=== PATIENT | female | born 1950 | race Two or more races ===

== ENCOUNTER → 2017-10-13 | Outpatient (CLI) | payer OTHER ==
[~2017-10-13] MED LIST: AZITHROMYCIN250 MG; CALTRATE 61 TAB.CHEW PO; CLONAZEPAM1 MG PO; COLACE100 MG PO; DOCUSATE SODIU100 MG PO; FOLIC ACID1 MG PO; GUAIFENESIN AC C5 ML PO; Glucophage PO; INTESTINEX1 CAP PO; INTRINSI B12-F1 EACH PO; LEVAQUIN-D5W5 MG/M2 PO; LEVSIN/SL0.125 MG SL; OSEL75CA; OSEL75CA PO; OSTERA TABLET1 EACH PO; PERCOCET 5/3251 TAB PO; Pepcid 20 MG TABLET PO; SINGULAIR 10MG10 MG PO; SYNTHROID75 MCG PO; SYNTHROID88 MCG; VASOTEC PO; VASOTEC10 MG NGT; VIT C-BIOFLAVO1 EACH PO; ZOCOR20 MG PO; Zolpidem Tartrate 5MG PO; [UNRECOGNIZED DRUG - OTHER]
== END | disposition home or self-care (01) ==
LOC: NUCLEAR 10-12 10:00
DX: M81.0 Age-related osteoporosis without current pathological fracture (principal)

== ENCOUNTER 2017-10-14 11:57 | Outpatient (CLI) | payer OTHER | END 2017-10-14 15:00 | disposition home or self-care (01) | LOC: MAMO-SONO 11:57 | DX: Z12.31 Encounter for screening mammogram for malignant neoplasm of breast (principal); Z87.898 Personal history of other specified conditions; E11.40 Type 2 diabetes mellitus with diabetic neuropathy, unspecified; E11.42 Type 2 diabetes mellitus with diabetic polyneuropathy; E11.51 Type 2 diabetes mellitus with diabetic peripheral angiopathy without gangrene; I10 Essential (primary) hypertension; Z68.21 Body mass index [BMI] 21.0-21.9, adult; E03.8 Other specified hypothyroidism; R10.31 Right lower quadrant pain; I99.8 Other disorder of circulatory system; E78.2 Mixed hyperlipidemia ==

== ENCOUNTER 2017-10-21 12:31 | Outpatient (CLI) | payer OTHER | END 2017-10-21 16:00 | disposition home or self-care (01) | LOC: MRI 12:31 | DX: N85.9 Noninflammatory disorder of uterus, unspecified (principal); R10.2 Pelvic and perineal pain | CPT/HCPCS: 72197; A9579 ==

== ENCOUNTER 2017-11-23 09:05 | Outpatient (CLI) | payer OTHER | END 2017-11-23 10:58 | disposition home or self-care (01) | LOC: RAD 09:05 | DX: M50.00 Cervical disc disorder with myelopathy, unspecified cervical region (principal); Z98.1 Arthrodesis status ==

== ENCOUNTER 2017-12-10 11:55 | Outpatient (CLI) | payer OTHER ==
[~2017-12-10 11:55] MED LIST changes: -SYNTHROID88 MCG; +SYNTHROID88 MCG PO
== END 2017-12-10 16:32 | disposition home or self-care (01) ==
LOC: TOM 11:55
DX: K57.30 Diverticulosis of large intestine without perforation or abscess without bleeding (principal)

== ENCOUNTER 2017-12-15 07:31 | Outpatient (CLI) | payer OTHER ==
[~2017-12-15 07:31] MED LIST changes: +SYNTHROID88 MCG; -SYNTHROID88 MCG PO
== END 2017-12-15 07:56 | disposition home or self-care (01) ==
LOC: MRI 07:31
DX: M51.36 Other intervertebral disc degeneration, lumbar region (principal)
CPT/HCPCS: 72148

== ENCOUNTER 2018-02-01 07:25 | Outpatient (CLI) | payer OTHER | END 2018-02-01 07:27 | disposition home or self-care (01) | LOC: RAD 07:25 | DX: R07.89 Other chest pain (principal) ==

== ENCOUNTER 2018-02-09 11:15 | Inpatient (IN) | payer OTHER ==
[~2018-02-09] VITALS: Ht 152.4 cm; Wt 57.2 kg
[~2018-02-09 11:15] MED LIST changes: -SYNTHROID88 MCG; +SYNTHROID88 MCG PO
[2018-02-16] MEDS ORDERED: AMOX-CLAV 875-1 EACH PO (07:30)
[2018-02-16] MEDS ORDERED: GABAPENTIN800 MG PO (07:30)
[2018-02-16] MEDS ORDERED: DOCUSATE SODIU100 MG PO (07:30)
[2018-02-16] MEDS ORDERED: CLONAZEPAM1 MG PO (07:32)
[2018-02-16] MEDS ORDERED: PERCOCET 5-3251 EACH PO (07:32)
== END 2018-02-16 13:44 | disposition home or self-care (01) | DRG 460 ==
LOC: O/R 02-15 04:40 → PED 02-15 04:40 → SURH 02-15 11:15 → PED 02-15 14:00
PROVIDERS: Orthopaedic Surgery Orthopaedic Surgery of the Spine
PROC: 0SG30AJ Fusion of Lumbosacral Joint with Interbody Fusion Device, Posterior Approach, Anterior Column, Open Approach (ICD-10-PCS; 2018-02-15)
PROC: 0ST40ZZ Resection of Lumbosacral Disc, Open Approach (ICD-10-PCS; 2018-02-15)
PROC: 07DS3ZZ Extraction of Vertebral Bone Marrow, Percutaneous Approach (ICD-10-PCS; 2018-02-15)
PROC: 00NY0ZZ Release Lumbar Spinal Cord, Open Approach (ICD-10-PCS; principal; 2018-02-15 12:45)
DX: M47.27 Other spondylosis with radiculopathy, lumbosacral region (principal); M51.17 Intervertebral disc disorders with radiculopathy, lumbosacral region; E11.9 Type 2 diabetes mellitus without complications; E03.8 Other specified hypothyroidism; I10 Essential (primary) hypertension

== ENCOUNTER 2018-04-08 07:44 | Outpatient (CLI) | payer OTHER ==
[~2018-04-08 07:44] MED LIST changes: +AMOX-CLAV 875-1 EACH PO; +GABAPENTIN800 MG PO; +PERCOCET 5-3251 EACH PO
[2018-04-08] MEDS ORDERED: METFORMIN HCL500 M2 PO (08:30)
== END 2018-04-08 07:45 | disposition home or self-care (01) ==
LOC: RAD 07:44
DX: M51.36 Other intervertebral disc degeneration, lumbar region (principal); Z98.1 Arthrodesis status

== ENCOUNTER 2018-04-08 08:10 | Emergency (ER) | payer OTHER ==
[~2018-04-08] VITALS: Ht 160 cm; Wt 53.1 kg
[2018-04-08] MEDS ORDERED: METFORMIN HCL500 M2 PO (08:30)
== END 2018-04-08 21:13 | disposition home or self-care (01) ==
LOC: ER 08:10
DX: L29.0 Pruritus ani (principal); R63.4 Abnormal weight loss

== ENCOUNTER 2018-04-22 10:49 | Outpatient (CLI) | payer OTHER ==
[~2018-04-22 10:49] MED LIST changes: +METFORMIN HCL500 M2 PO
== END 2018-04-22 10:57 | disposition home or self-care (01) ==
LOC: SONOGRAMA 10:49
DX: N20.0 Calculus of kidney (principal); I10 Essential (primary) hypertension; Z68.21 Body mass index [BMI] 21.0-21.9, adult; E04.1 Nontoxic single thyroid nodule

== ENCOUNTER 2018-07-14 15:02 | Outpatient (CLI) | payer OTHER | END 2018-07-14 15:09 | disposition home or self-care (01) | LOC: RAD 15:02 | DX: J45.31 Mild persistent asthma with (acute) exacerbation (principal) ==

== ENCOUNTER 2018-07-22 08:12 | Outpatient (CLI) | payer OTHER | END 2018-07-22 08:27 | disposition home or self-care (01) | LOC: RAD 08:12 | DX: M51.36 Other intervertebral disc degeneration, lumbar region (principal); Z98.1 Arthrodesis status ==

== ENCOUNTER 2018-08-06 07:25 | Outpatient (CLI) | payer OTHER | END 2018-08-06 07:29 | disposition home or self-care (01) | LOC: SONOGRAMA 07:25 | DX: R10.2 Pelvic and perineal pain (principal); D25.9 Leiomyoma of uterus, unspecified ==

== ENCOUNTER 2018-09-20 07:47 | Outpatient (CLI) | payer OTHER ==
[~2018-09-20] VITALS: Ht 152.4 cm; Wt 56.7 kg
== END 2018-09-20 08:00 | disposition home or self-care (01) ==
LOC: OFIC 805 07:47
DX: J34.2 Deviated nasal septum (principal); J31.0 Chronic rhinitis

== ENCOUNTER 2018-10-21 08:01 | Outpatient (CLI) | payer OTHER ==
[~2018-10-21] VITALS: Ht 152.4 cm; Wt 56.7 kg
== END 2018-10-21 08:15 | disposition home or self-care (01) ==
LOC: OFIC 805 08:01
DX: J34.2 Deviated nasal septum (principal); J31.0 Chronic rhinitis

== ENCOUNTER 2018-10-22 09:37 | Outpatient (CLI) | payer OTHER | END 2018-10-22 09:54 | disposition home or self-care (01) | LOC: MAMO-SONO 09:37 | DX: Z12.31 Encounter for screening mammogram for malignant neoplasm of breast (principal); Z87.898 Personal history of other specified conditions; N64.89 Other specified disorders of breast; E04.1 Nontoxic single thyroid nodule; Z13.820 Encounter for screening for osteoporosis; M81.0 Age-related osteoporosis without current pathological fracture ==

== ENCOUNTER 2018-12-15 07:05 | Outpatient (CLI) | payer OTHER | END 2018-12-15 07:13 | disposition home or self-care (01) | LOC: TOM 07:05 | DX: R10.13 Epigastric pain (principal); R63.5 Abnormal weight gain | CPT/HCPCS: 74178; Q9965 ==

== ENCOUNTER 2019-02-05 16:31 | Emergency (ER) | payer OTHER ==
[~2019-02-05] VITALS: Ht 157.5 cm; Wt 56.7 kg
[2019-02-05] MEDS ORDERED: ALBUTEROL2.5 MG/3 M (18:31)
[2019-02-05] MEDS ORDERED: AZITHROMYCIN500 MG (18:32)
[2019-02-05] MEDS ORDERED: VASOTEC2.5 MG (18:33)
[2019-02-05] MEDS ORDERED: VASOTEC10 MG (18:34)
== END 2019-02-05 20:39 | disposition home or self-care (01) ==
LOC: ER 16:31
DX: J06.9 Acute upper respiratory infection, unspecified (principal); I10 Essential (primary) hypertension

== ENCOUNTER 2019-04-19 07:32 | Outpatient (CLI) | payer OTHER ==
[~2019-04-19 07:32] MED LIST changes: +ALBUTEROL2.5 MG/3 M; +AZITHROMYCIN500 MG; +VASOTEC10 MG; +VASOTEC2.5 MG
== END 2019-04-19 14:47 | disposition home or self-care (01) ==
LOC: SONOGRAMA 07:32
DX: N20.0 Calculus of kidney (principal); E11.22 Type 2 diabetes mellitus with diabetic chronic kidney disease; E11.40 Type 2 diabetes mellitus with diabetic neuropathy, unspecified; I12.9 Hypertensive chronic kidney disease with stage 1 through stage 4 chronic kidney disease, or unspecified chronic kidney disease; Z68.21 Body mass index [BMI] 21.0-21.9, adult; E04.1 Nontoxic single thyroid nodule; M54.5 Low back pain; N18.2 Chronic kidney disease, stage 2 (mild); E78.49 Other hyperlipidemia

== ENCOUNTER 2019-04-26 07:08 | Outpatient (CLI) | payer OTHER | END 2019-04-26 07:09 | disposition home or self-care (01) | LOC: SONOGRAMA 07:08 → TOM 07:15 | DX: E04.2 Nontoxic multinodular goiter (principal) ==

== ENCOUNTER 2019-10-19 14:39 | Inpatient (IN) | payer OTHER ==
[~2019-10-19] VITALS: Ht 160 cm; Wt 57.6 kg
--- NOTE | 2019-10-19 15:03 | NUR ---
PACIENTE FEMINA ALERTA Y ORIENTADA CON DORIS DOLOR ABDOMINAL EN LAS ULTIMAS 24 HORAS 3 EPISODIOS. LOS SINTOMAS SON DESDE HOY.
--- NOTE | 2019-10-19 17:57 | NUR ---
PACIENTE ALERTA Y ORIENTADA EN JAYMIE CHRISTAL ESFERAS, ES ORIENTADA SOBRE ORDENES MEDICAS, REFIERE ENTENDER. SE COLECTAN MUESTRAS DE DENIS, SE CANALIZA VENA, SE ADMINISTRAN MEDICAMENTOS, SE HACE ENTREGA DE CONSTRASTE GASTROVIEW CON INSTRUCCIONES PREVIAS, PENDIENTE QUE PACIENTE ENTREGUE MUESTRA DE ORINA.
[2019-10-21] MEDS ORDERED: ULTRACET PO (16:26)
[2019-10-21] MEDS ORDERED: CIPRO500 MG PO (16:26)
== END 2019-10-21 17:29 | disposition home or self-care (01) | DRG 343 ==
LOC: ER 14:39 → SURG 22:26
PROVIDERS: ADMIT Surgery
PROC: BW21YZZ Computerized Tomography (CT Scan) of Abdomen and Pelvis using Other Contrast (ICD-10-PCS; 2019-10-19)
PROC: 0DTJ0ZZ Resection of Appendix, Open Approach (ICD-10-PCS; principal; 2019-10-20 07:00)
DX: K35.890 Other acute appendicitis without perforation or gangrene (principal); K57.30 Diverticulosis of large intestine without perforation or abscess without bleeding; E03.8 Other specified hypothyroidism; I10 Essential (primary) hypertension; E86.0 Dehydration; E87.8 Other disorders of electrolyte and fluid balance, not elsewhere classified

== ENCOUNTER → 2019-10-27 | Outpatient (CLI) | payer OTHER ==
[~2019-10-27] MED LIST changes: +CIPRO500 MG PO; +ULTRACET PO
== END | disposition home or self-care (01) ==
LOC: MAMO-SONO 10:25
DX: Z12.31 Encounter for screening mammogram for malignant neoplasm of breast (principal); Z87.898 Personal history of other specified conditions; N64.4 Mastodynia; M81.0 Age-related osteoporosis without current pathological fracture

== ENCOUNTER 2019-11-02 09:13 | Outpatient (CLI) | payer OTHER | END 2019-11-02 09:25 | disposition home or self-care (01) | LOC: NUCLEAR 09:13 | DX: M85.89 Other specified disorders of bone density and structure, multiple sites (principal) ==

== ENCOUNTER 2020-08-10 07:11 | Outpatient (CLI) | payer OTHER | END 2020-08-10 07:19 | disposition home or self-care (01) | LOC: TOM 07:11 | DX: K57.90 Diverticulosis of intestine, part unspecified, without perforation or abscess without bleeding (principal); N20.0 Calculus of kidney ==

== ENCOUNTER 2020-08-20 07:36 | Outpatient (CLI) | payer OTHER | END 2020-08-20 07:46 | disposition home or self-care (01) | LOC: RAD 07:36 | DX: R07.89 Other chest pain (principal) ==

== ENCOUNTER 2020-08-27 08:27 | Outpatient (CLI) | payer OTHER | END 2020-08-27 08:37 | disposition home or self-care (01) | LOC: NUCLEAR 08:27 | PROVIDERS: ATTEND Internal Medicine Rheumatology | DX: M05.29 Rheumatoid vasculitis with rheumatoid arthritis of multiple sites (principal); M87.059 Idiopathic aseptic necrosis of unspecified femur | CPT/HCPCS: 78315; A9503 ==

== ENCOUNTER 2020-11-01 08:26 | Outpatient (CLI) | payer OTHER | END 2020-11-01 08:42 | disposition home or self-care (01) | LOC: MAMO-SONO 08:26 | PROVIDERS: ATTEND Obstetrics & Gynecology | DX: Z12.31 Encounter for screening mammogram for malignant neoplasm of breast (principal); N64.4 Mastodynia ==

== ENCOUNTER 2021-02-19 07:19 | Outpatient (CLI) | payer OTHER | END 2021-02-19 07:27 | disposition home or self-care (01) | LOC: RAD 07:19 | DX: M25.562 Pain in left knee (principal) ==

== ENCOUNTER 2021-05-30 07:17 | Outpatient (CLI) | payer OTHER | END 2021-05-30 13:11 | disposition home or self-care (01) | LOC: TOM 07:17 | PROVIDERS: ATTEND Specialist | DX: I10 Essential (primary) hypertension (principal); E78.2 Mixed hyperlipidemia; D51.3 Other dietary vitamin B12 deficiency anemia; D50.8 Other iron deficiency anemias; D72.818 Other decreased white blood cell count; M06.89 Other specified rheumatoid arthritis, multiple sites; J84.89 Other specified interstitial pulmonary diseases | CPT/HCPCS: 71260; Q9965 ==

== ENCOUNTER 2021-06-03 10:42 | Outpatient (CLI) | payer OTHER | END 2021-06-03 10:47 | disposition home or self-care (01) | LOC: RAD 10:42 | PROVIDERS: ATTEND Orthopaedic Surgery | DX: M17.12 Unilateral primary osteoarthritis, left knee (principal); M17.11 Unilateral primary osteoarthritis, right knee ==

== ENCOUNTER 2021-08-27 07:27 | Outpatient (CLI) | payer OTHER | END 2021-08-27 07:29 | disposition home or self-care (01) | LOC: SONOGRAMA 07:27 | DX: R10.2 Pelvic and perineal pain (principal) ==

== ENCOUNTER 2021-11-06 07:08 | Outpatient (CLI) | payer OTHER | END 2021-11-06 07:10 | disposition home or self-care (01) | LOC: RAD 07:08 | DX: M25.551 Pain in right hip (principal); M25.552 Pain in left hip ==

== ENCOUNTER 2021-12-18 07:07 | Outpatient (CLI) | payer OTHER | END 2021-12-18 07:17 | disposition home or self-care (01) | LOC: SONOGRAMA 07:07 | DX: R16.1 Splenomegaly, not elsewhere classified (principal); D53.8 Other specified nutritional anemias ==

== ENCOUNTER 2022-05-05 07:39 | Outpatient (CLI) | payer OTHER | END 2022-05-05 07:46 | disposition home or self-care (01) | LOC: MAMO-SONO 07:39 | PROVIDERS: ATTEND General Practice | DX: Z12.31 Encounter for screening mammogram for malignant neoplasm of breast (principal); N63.12 Unspecified lump in the right breast, upper inner quadrant ==

== ENCOUNTER 2022-05-16 08:01 | Outpatient (CLI) | payer OTHER | END 2022-05-16 08:15 | disposition home or self-care (01) | LOC: RAD 08:01 | PROVIDERS: ATTEND Ophthalmology | DX: H25.011 Cortical age-related cataract, right eye (principal); Z98.41 Cataract extraction status, right eye ==

== ENCOUNTER 2022-06-25 07:28 | Outpatient (CLI) | payer OTHER | END 2022-06-25 07:34 | disposition home or self-care (01) | LOC: RAD 07:28 | PROVIDERS: ATTEND General Practice | DX: R51.9 Headache, unspecified (principal) ==

== ENCOUNTER → 2022-07-17 08:08 | Outpatient (CLI) | payer OTHER | END | disposition home or self-care (01) | LOC: LAB 08:08 | PROVIDERS: ATTEND Ophthalmology | DX: I10 Essential (primary) hypertension (principal); I11.9 Hypertensive heart disease without heart failure ==

== ENCOUNTER 2022-08-25 09:32 | Outpatient (CLI) | payer OTHER | END 2022-08-25 10:00 | disposition home or self-care (01) | LOC: SONOGRAMA 09:32 | PROVIDERS: ATTEND Internal Medicine Endocrinology, Diabetes & Metabolism | DX: E04.2 Nontoxic multinodular goiter (principal); R59.0 Localized enlarged lymph nodes ==

== ENCOUNTER 2022-09-22 07:20 | Outpatient (CLI) | payer OTHER | END 2022-09-22 07:25 | disposition home or self-care (01) | LOC: RAD 07:20 | PROVIDERS: ATTEND General Practice | DX: M25.552 Pain in left hip (principal); M25.562 Pain in left knee ==

== ENCOUNTER 2022-11-10 08:45 | Outpatient (CLI) | payer OTHER | END 2022-11-10 08:50 | disposition home or self-care (01) | LOC: EKG 08:45 | PROVIDERS: ATTEND Ophthalmology | DX: I11.9 Hypertensive heart disease without heart failure (principal) ==

== ENCOUNTER 2023-05-12 07:45 | Outpatient (CLI) | payer OTHER | END 2023-05-12 07:54 | disposition home or self-care (01) | LOC: MAMO-SONO 07:45 | PROVIDERS: ATTEND Internal Medicine Endocrinology, Diabetes & Metabolism | DX: Z12.31 Encounter for screening mammogram for malignant neoplasm of breast (principal); N64.4 Mastodynia ==

== ENCOUNTER 2024-01-13 08:32 | Outpatient (CLI) | payer OTHER | END 2024-01-13 08:37 | disposition home or self-care (01) | LOC: RAD 08:32 | PROVIDERS: ATTEND General Practice | DX: R05.9 Cough, unspecified (principal) ==

== ENCOUNTER 2024-05-11 08:45 | Outpatient (CLI) | payer OTHER | END 2024-05-11 08:51 | disposition home or self-care (01) | LOC: MAMO-SONO 08:45 → SONOGRAMA 08:45 → MAMO-SONO 08:51 | PROVIDERS: ATTEND General Practice | DX: E04.1 Nontoxic single thyroid nodule (principal); M54.6 Pain in thoracic spine; S30.0XXA Contusion of lower back and pelvis, initial encounter; S40.019A Contusion of unspecified shoulder, initial encounter ==

== ENCOUNTER 2024-07-30 14:51 | Emergency (ER) | payer OTHER ==
[~2024-07-30] VITALS: Ht 160 cm; Wt 58.1 kg
[2024-07-30] MEDS ORDERED: 0.9 % SODIUM CHLORIDE 1,000 ML IV ONE (15:30)
[2024-07-30] MEDS ORDERED: ASPIRIN 81 MG TABLET.EC PO ONE (15:30)
[2024-07-30] MEDS ORDERED: LEVALBUTEROL HCL 0.63 MG/3 ML SOLUTION IH ONE (15:30)
[2024-07-30 15:56] LABS: ABG PH 7.475 (7.35-7.45); ABG PO2 119.2 mmHg (80-100); ABG pCO2 36.2 mmHg (35-45); BASE EXCESS 2.7 mmol/l; SaO2 98.9 %; Tco2 27.1 mmol/l
[2024-07-30 15:58] LABS: allen test SATISFACTORY; o2 21 %; puncture site RADIAL RIGHT
[2024-07-30 16:11] LABS: HEMATOCRIT 34.5 % (36.0-45.00); HEMOGLOBIN 11.8 g/dL (12.0-15.00); MEAN CELL VOLUME 94.8 fL (80.00-100.00); MEAN CORPUSCULAR HEMOGLOBIN 32.4 pg (27.00-32.0); MEAN CORPUSCULAR HGB CONC 34.1 g/dl (32.0-36.0); PLATELET COUNT 222 K/uL (150-450); RED BLOOD COUNT 3.64 M/uL (4.00-6.00); RED CELL DISTRIBUTION WIDTH 13.6 % (11.5-14.5)
[2024-07-30 16:29] LABS: URINE APPEARANCE Clear; URINE BILIRRUBIN Negative (NEGATIVE); URINE BLOOD Negative; URINE COLOR Yellow; URINE GLUCOSE Negative (NEGATIVE); URINE KETONE Negative (NEGATIVE); URINE LEUKOCYTE Negative; URINE NITRATE Negative; URINE PROTEIN Negative (NEGATIVE); URINE UROBILINOGEN 0.2 E.U./dl
[2024-07-30 16:33] LABS: URINE EPITHELIAL CELLS 3.8 uL (0.0-38.8); URINE RBC 2.2 uL (0.0-20.8); URINE WBC 2.9 uL (0.0-23.2)
[2024-07-30 16:36] LABS: INR 1.03; PARTIAL THROMBOPLASTIN TIME 23.2 SECONDS (22.0-34.0); PROTHROMBIN TIME 11.2 SECONDS (9.0-11.5)
[2024-07-30 16:40] LABS: BILIRUBIN TOTAL 0.28 mg/dL (0.3-1.2); CALCIUM 9.3 mg/dL (8.5-10.1); CREATININE SERUM 1.01 mg/dL (0.55-1.02); GFR 53.43; GLOBULINA 3.3 G/DL (2.4-3.5); POTASSIUM 4.17 mEq/L (3.5-5.1); TOTAL PROTEIN 7.3 gm/dL (6.4-8.2)
[2024-07-30 16:46] LABS: T4 FREE 1.25 NG/ML (0.76-1.46); TSH 0.88 uIU/mL (0.358-3.74)
== END 2024-07-30 22:49 | disposition home or self-care (01) ==
LOC: ER 14:51
PROVIDERS: General Practice
DX: R07.9 Chest pain, unspecified (principal); R06.02 Shortness of breath; Z88.2 Allergy status to sulfonamides; Z91.013 Allergy to seafood; F41.8 Other specified anxiety disorders
CPT/HCPCS: 36415; 70450; 71045; 82803; 94640; 96365; 96366; 99284; J7030

== ENCOUNTER 2024-09-16 09:03 | Emergency (ER) | payer OTHER ==
[~2024-09-16] VITALS: Ht 177.8 cm; Wt 46.3 kg
== END 2024-09-16 12:27 | disposition home or self-care (01) ==
LOC: ER 09:05
DX: J02.9 Acute pharyngitis, unspecified (principal); Z20.822 Contact with and (suspected) exposure to COVID-19; Z88.2 Allergy status to sulfonamides; Z88.8 Allergy status to other drugs, medicaments and biological substances; E11.9 Type 2 diabetes mellitus without complications; Z79.84 Long term (current) use of oral hypoglycemic drugs

== ENCOUNTER 2024-11-15 09:18 | Outpatient (CLI) | payer OTHER | END 2024-11-15 09:31 | disposition home or self-care (01) | LOC: MAMO-SONO 09:18 | PROVIDERS: ATTEND Specialist | DX: N60.11 Diffuse cystic mastopathy of right breast (principal); N60.12 Diffuse cystic mastopathy of left breast; Z12.31 Encounter for screening mammogram for malignant neoplasm of breast ==

== ENCOUNTER 2024-12-06 11:00 | Outpatient (CLI) | payer OTHER | END 2024-12-06 11:01 | disposition home or self-care (01) | LOC: NUCLEAR 11:00 | PROVIDERS: ATTEND Specialist | DX: M81.0 Age-related osteoporosis without current pathological fracture (principal) ==

== ENCOUNTER 2025-02-24 10:00 | Emergency (ER) | payer OTHER ==
[~2025-02-24] VITALS: Ht 157.5 cm; Wt 50.8 kg
[2025-02-24 10:17] VITALS: BP 153/68; O2SAT 98
[2025-02-24] MEDS ORDERED: BUDESONIDE 0.5 MG/2 ML AMPUL.NEB IH STA (10:55)
[2025-02-24] MEDS ORDERED: LEVALBUTEROL HCL 1.25 MG/3 ML SOLUTION IH STA (10:55)
[2025-02-24] MEDS ORDERED: METHYLPREDNISOLONE SOD SUCC 125 MG VIAL IV STA (10:56)
[2025-02-24] MEDS ORDERED: LEVALBUTEROL HCL 1.25 MG/3 ML SOLUTION IH ONE (11:14)
[2025-02-24] MEDS ORDERED: BUDESONIDE 0.5 MG/2 ML AMPUL.NEB IH ONE (11:14)
[2025-02-24] MEDS ORDERED: METHYLPREDNISOLONE SOD SUCC 125 MG VIAL ONE (11:18)
[2025-02-24 11:24] LABS: ABG PH 7.421 (7.35-7.45); ABG PO2 96.5 mmHg (80-100); ABG pCO2 42.2 mmHg (35-45); BICARBONATE 26.8 mmol/l (23-25); SaO2 97.7 %; Tco2 28.1 mmol/l; allen test SATISFACTORY; mode ROOM AIR; o2 21 %; puncture site RADIAL RIGHT
[2025-02-24 12:17] LABS: BASO % 0.6 % (0.1-1.2); EOS # 0.08 (0.04-0.54); EOS % 1.7 % (0.7-7.0); HEMATOCRIT 32.8 % (34.1-44.9); HEMOGLOBIN 10.7 g/dL (11.2-15.7); LYMPH # 1.33 (1.18-3.74); LYMPH % 28.1 % (19.3-53.1); MEAN CORPUSCULAR HEMOGLOBIN 30.8 pg (25.6-32.2); NEUT % 50.6 % (34.0-71.1); PLATELET COUNT 153 K/uL (163-369); RED BLOOD COUNT 3.47 M/uL (3.93-5.22); RED CELL DISTRIBUTION WIDTH 12.9 % (11.6-14.4)
[2025-02-24 13:36] LABS: INFLUENZA A AG NEGATIVE (NEGATIVE)
[2025-02-24 13:37] LABS: COVID-19 AG NEGATIVE (NEGATIVE)
== END 2025-02-24 14:10 | disposition home or self-care (01) ==
LOC: ER 10:00
PROVIDERS: General Practice
DX: J45.909 Unspecified asthma, uncomplicated (principal); R05.9 Cough, unspecified; Z20.822 Contact with and (suspected) exposure to COVID-19; Z88.2 Allergy status to sulfonamides; Z91.013 Allergy to seafood; Z91.041 Radiographic dye allergy status
CPT/HCPCS: 36415; 71046; 82803; 94640; 96365; 99283; J3490

== ENCOUNTER 2025-02-27 08:26 | Emergency (ER) | payer OTHER ==
[~2025-02-27] VITALS: Ht 157.5 cm; Wt 50.8 kg
[2025-02-27] MEDS ORDERED: MAGNESIUM SULFATE/D5W 100 ML IV NR (09:10)
[2025-02-27] MEDS ORDERED: METHYLPREDNISOLONE SOD SUCC 125 MG VIAL IV ONE (09:15)
[2025-02-27] MEDS ORDERED: LEVALBUTEROL HCL 1.25 MG/3 ML SOLUTION IH SCH (09:15)
[2025-02-27] MEDS ORDERED: MAGNESIUM SULFATE IN WATER 2 GM/50 ML PIGGYBAG IV ONE (09:15)
[2025-02-27] MEDS ORDERED: METHYLPREDNISOLONE SOD SUCC 125 MG VIAL ONE (09:50)
[2025-02-27] MEDS ORDERED: LEVALBUTEROL HCL 1.25 MG/3 ML SOLUTION IH ONE (10:10)
[2025-02-27 13:10] LABS: BASO % 0.6 % (0.1-1.2); EOS # 0.05 (0.04-0.54); EOS % 0.7 % (0.7-7.0); LYMPH % 27.7 % (19.3-53.1); MEAN CORPUSCULAR HEMOGLOBIN 30.4 pg (25.6-32.2); MONO # 1.11 (0.24-0.82); NEUT # 3.99 (1.56-6.13); NEUT % 55.3 % (34.0-71.1); PLATELET COUNT 186 K/uL (163-369); RED BLOOD COUNT 3.62 M/uL (3.93-5.22); RED CELL DISTRIBUTION WIDTH 12.7 % (11.6-14.4)
[2025-02-27 13:16] LABS: MONO % 15.4 % (4.7-12.5)
== END 2025-02-27 15:36 | disposition home or self-care (01) ==
LOC: ER 08:26
PROVIDERS: General Practice
DX: J45.901 Unspecified asthma with (acute) exacerbation (principal); J06.9 Acute upper respiratory infection, unspecified; Z88.2 Allergy status to sulfonamides; Z88.8 Allergy status to other drugs, medicaments and biological substances; Z91.013 Allergy to seafood

== ENCOUNTER 2025-03-02 11:58 | Emergency (ER) | payer OTHER ==
[~2025-03-02] VITALS: Ht 157.5 cm; Wt 50.8 kg
[2025-03-02] MEDS ORDERED: METHYLPREDNISOLONE SOD SUCC 125 MG VIAL ONE (13:28)
[2025-03-02] MEDS ORDERED: IPRATROPIUM BROMIDE 0.5 MG/2.5 ML AMPUL.NEB IH SCH (13:30)
[2025-03-02] MEDS ORDERED: LEVALBUTEROL HCL 0.63 MG/3 ML SOLUTION IH SCH (13:30)
[2025-03-02] MEDS ORDERED: METHYLPREDNISOLONE SOD SUCC 125 MG VIAL IV ONE (13:30)
[2025-03-02] MEDS ORDERED: IPRATROPIUM BROMIDE 0.5 MG/2.5 ML AMPUL.NEB IH ONE ×2 (13:42→16:08)
[2025-03-02] MEDS ORDERED: LEVALBUTEROL HCL 0.63 MG/3 ML SOLUTION IH ONE ×2 (13:43→16:08)
[2025-03-02 14:34] LABS: BASO % 0.2 % (0.1-1.2); EOS # 0.09 (0.04-0.54); EOS % 0.7 % (0.7-7.0); HEMATOCRIT 35.6 % (34.1-44.9); HEMOGLOBIN 11.7 g/dL (11.2-15.7); LYMPH # 2.17 (1.18-3.74); LYMPH % 17.6 % (19.3-53.1); MEAN CORPUSCULAR HEMOGLOBIN 30.5 pg (25.6-32.2); MONO # 1.22 (0.24-0.82); MONO % 9.9 % (4.7-12.5); NEUT # 8.79 (1.56-6.13); NEUT % 71.2 % (34.0-71.1); PLATELET COUNT 216 K/uL (163-369); RED BLOOD COUNT 3.83 M/uL (3.93-5.22); RED CELL DISTRIBUTION WIDTH 12.9 % (11.6-14.4)
[2025-03-02 14:52] LABS: COVID-19 AG NEGATIVE (NEGATIVE); INFLUENZA A AG NEGATIVE (NEGATIVE)
[2025-03-02] MEDS ORDERED: MONTELUKAST SODI4 M1 PO (17:21)
[2025-03-02] MEDS ORDERED: MEDROLPACK PO (17:21)
[2025-03-02] MEDS ORDERED: XOPENEX CO1.25 MG/0. IH (17:21)
== END 2025-03-02 17:29 | disposition home or self-care (01) ==
LOC: ER 12:51
PROVIDERS: Emergency Medicine
DX: J45.901 Unspecified asthma with (acute) exacerbation (principal); Z88.2 Allergy status to sulfonamides; Z91.041 Radiographic dye allergy status; Z91.013 Allergy to seafood; Z20.822 Contact with and (suspected) exposure to COVID-19; E11.9 Type 2 diabetes mellitus without complications; Z79.84 Long term (current) use of oral hypoglycemic drugs
CPT/HCPCS: 36415; 71046; 94640; 96365; 99284; J3490

== ENCOUNTER → 2025-03-07 | Emergency (ER) | payer OTHER ==
[~2025-03-07] VITALS: Ht 152.4 cm; Wt 49.9 kg
[~2025-03-07] MED LIST changes: +MEDROLPACK PO; +MONTELUKAST SODI4 M1 PO; +PROAIR RESPICL90 MCG; +XOPENEX CO1.25 MG/0. IH
== END | disposition left against medical advice (07) ==
LOC: ER 22:16
DX: Z53.21 Procedure and treatment not carried out due to patient leaving prior to being seen by health care provider (principal)

== ENCOUNTER → 2025-04-08 | Emergency (ER) | payer OTHER ==
[~2025-04-08] VITALS: Ht 157.5 cm; Wt 53.5 kg
[~2025-04-08] MED LIST changes: +ADULT LOW DOSE81 M1 PO; +ARICEPT5 MG PO; +CLARITIN10 M1 PO; +METFORMIN HCL500 MG; +MONTELUKAST SODI4 M1; +ROSUVASTATIN CA10 MG PO; +TIROSINT88 MCG; +VASOTEC5 MG PO
[2025-04-08 10:06] LABS: BASO % 0.6 % (0.1-1.2); EOS # 0.08 (0.04-0.54); EOS % 1.3 % (0.7-7.0); LYMPH # 1.61 (1.18-3.74); LYMPH % 25.4 % (19.3-53.1); MEAN PLATELET VOLUME 8.90 fl (9.4-12.4); MONO # 0.69 (0.24-0.82); MONO % 10.9 % (4.7-12.5); NEUT # 3.92 (1.56-6.13); NEUT % 61.6 % (34.0-71.1); RED CELL DISTRIBUTION WIDTH 13.2 % (11.6-14.4)
[2025-04-08 10:29] LABS: ALT/SGPT 35.0 U/L (12-78); AST/SGOT 37.0 U/L (15-37); BILIRUBIN TOTAL 0.51 mg/dL (0.3-1.2); BUN CREA RATIO 15.0 (7.0-25.0); CREATININE SERUM 0.8 mg/dL (0.55-1.02); GFR 69.74; GLOBULINA 4.1 G/DL (2.4-3.5); GLUCOSE FASTING 117.0 mg/dL (65-100); OSMOLALITY SERUM 284.0 MOSM/KG (275-295)
[2025-04-08 11:15] LABS: URINE APPEARANCE Clear; URINE BILIRRUBIN Negative (NEGATIVE); URINE BLOOD Negative; URINE COLOR Yellow; URINE GLUCOSE Negative (NEGATIVE); URINE KETONE 15 (NEGATIVE); URINE LEUKOCYTE Negative; URINE NITRATE Negative; URINE PROTEIN Negative (NEGATIVE); URINE UROBILINOGEN 0.2 E.U./dl
[2025-04-08 11:19] LABS: URINE BACTERIA 4.8 uL (0.0-1933); URINE RBC 6.5 uL (0.0-20.8)
[2025-04-08 11:42] LABS: COVID-19 AG NEGATIVE (NEGATIVE)
[2025-04-08 12:05] LABS: URINE CAST 0.00 uL (0.0-1.40); URINE EPITHELIAL CELLS 1.3 uL (0.0-38.8); URINE WBC 1.2 uL (0.0-23.2)
== END | disposition home or self-care (01) ==
LOC: ER 07:23
PROVIDERS: Emergency Medicine
DX: E11.9 Type 2 diabetes mellitus without complications (principal); J45.909 Unspecified asthma, uncomplicated; Z79.84 Long term (current) use of oral hypoglycemic drugs; Z86.73 Personal history of transient ischemic attack (TIA), and cerebral infarction without residual deficits; R51.9 Headache, unspecified; I10 Essential (primary) hypertension; E03.8 Other specified hypothyroidism; Z88.2 Allergy status to sulfonamides; Z91.013 Allergy to seafood; Z91.041 Radiographic dye allergy status; Z20.822 Contact with and (suspected) exposure to COVID-19